=== PATIENT | male | born 1970 | race Caucasian/White ===

== ENCOUNTER 2023-11-15 17:33 | Emergency (ER) | payer OTHER, SELFPAY ==
[2023-11-15 17:42] VITALS: BP 130/68; PULSE 65; RESP 18; TEMP 37; O2SAT 100
--- NOTE | 2023-11-15 17:43 | ED.SKABFB ---
HPI - Skin/Abscess/Foreign Bdy General Chief complaint: Skin/Abscess/Foreign Body Stated complaint: Poison Amaya Time Seen by Provider: 11/15/23 17:43 Source: patient, RN notes reviewed and old records reviewed Mode of arrival: ambulatory Limitations: no limitations History of Present Illness HPI narrative: 52 year old male who presents to 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 Patient denies any sore throat or any difficulty with his breathing. He has red minimal raised diffuse rash noted generalized with no pustules or drainage with itching.. MD complaint: rash Onset (ago): day(s) (10) Location: generalized Severity scale (1-10): 6 Quality: burning and pruritic Associated symptoms: itching and other (rash) Treatments prior to arrival: other (calamine lotion, baking soda with alcohol) Related Data Allergies Allergy/AdvReac Type Severity Reaction Status Date / Time No Known Allergies Allergy Verified 11/15/23 17:42 Review of Systems Review of Systems: CONSTITUTIONAL: Denies fever, chills, or sweats. CARDIOVASCULAR: Denies chest pain, palpitations, or edema. RESPIRATORY: Denies cough or dyspnea. SKIN: Reports generalized rash red with no pustules or drainage is itchy MUSCULOSKELETAL: Denies joint pain or myalgia. NEUROLOGIC: Denies headache, numbness, or weakness. All systems reviewed & are unremarkable except as noted in HPI and below PMFSH Social History Social History (Updated 11/15/23 @ 18:31 by Areli Arroyo NP) Smoking status: Never smoker Alcohol intake: current Alcohol use details: social Substance use type: does not use Living arrangements: with family Gender identity (if verbalized by the patient): Male Comments At time of signature, agree with nursing past medical, surgical, social and family history. There is no relevant family history pertinent to the presenting complaint Exam Narrative: GENERAL: Well-appearing, well-nourished, and in no acute distress. HEAD: Normocephalic, atraumatic. EYES: PERRLA, conjunctivae clear, and EOMI. ENT: Mucous membranes moist. Oropharynx without edema, erythema or lesions. NECK: Supple. No lymphadenopathy CHEST: Clear to auscultation. No respiratory distress. SAO2 100% on room air HEART: Regular rate and rhythm. SKIN: Warm, dry.? Patches of red minimal raised rash generalized with no pustules or drainage is itchy NEURO:? Alert and oriented x3. PSYCH: Normal mood and affect Course Course Emergency Course: Patient is aware of diagnosis, understands and agrees to treatment plan.? Anticipatory guidance given.? Patient agrees to follow-up as directed and is aware of reasons to seek care at the emergency department. Portions of this record may have been created with voice recognition software Level of Care: Express Care Visit Vital Signs Vital signs: Vital Signs Temperature 37.0 C 11/15/23 17:42 Pulse Rate 65 11/15/23 17:42 Respiratory Rate 18 11/15/23 17:42 Blood Pressure 130/68 11/15/23 17:42 Pulse Oximetry 100 11/15/23 17:42 Oxygen Delivery Room Air 11/15/23 17:42 Temperature 37.0 C 11/15/23 17:42 Pulse Rate 65 11/15/23 17:42 Respiratory Rate 18 11/15/23 17:42 Blood Pressure 130/68 11/15/23 17:42 Pulse Oximetry 100 11/15/23 17:42 Oxygen Delivery Room Air 11/15/23 17:42 Reviewed MDM - Skin/Abscess/Foreign Bdy MDM Narrative Medical decision making narrative: Does not appear at this time to be erythema multiforme, bullous, SJS, TEN; no evidence at this time to suggest RMSF, endocarditis or Lyme disease; patient looks well, nontoxic and is tolerating oral intake; no neurologic si
[2023-11-15] MEDS: methylPREDNISolone ACETATE 80 MG/ML VIAL IM (17:59)
== END 2023-11-15 18:15 | disposition home or self-care (01) ==
PROVIDERS: Emergency Provider Registered Nurse; PCP Internal Medicine
DX: L25.9 Unspecified contact dermatitis, unspecified cause (principal)
CPT/HCPCS: 96372; 99213; G0463; J1040